=== PATIENT | female | born 1965 | race Caucasian/White ===

== ENCOUNTER 2024-03-09 11:06 | Emergency (ER) | payer BC ==
[2024-03-09 11:15] VITALS: BP 124/83; PULSE 82; RESP 16; TEMP 98.1; BMI 32.4
[2024-03-09] MEDS ORDERED: ALBUTEROL SO4 2.5/IPRATROPIUM 0.5 INH SOL 3 ML VIAL.NEB. NEB ONE (12:01)
[2024-03-09 12:04] LABS: HEMATOCRIT 42.5 % (32.4-45.2); HEMOGLOBIN 14.8 G/dL (10.7-15.3); MCH 29.6 pg (25.7-33.7); MCHC 34.8 g/dl (32.0-36.0); MEAN CELL VOLUME 84.9 fl (80-96); MEAN PLT VOLUME 8.9 fl (7.5-11.1); PLATELET COUNT 230.2 10^3/uL (134-434); RDW 13.3 % (11.6-15.6); WHITE BLOOD COUNT 7.8 10^3/uL (4.0-10.8)
[2024-03-09] MEDS: ALBUTEROL SO4 2.5/IPRATROPIUM 0.5 INH SOL 3 ML VIAL.NEB. NEB SCH (12:09)
[2024-03-09 12:11] LABS: INR 1.01 (0.83-1.09); PROTHROMBIN TIME (PATIENT) 11.5 SEC (9.7-13.0)
[2024-03-09 12:14] LABS: ACTIVATED PTT 34.9 SECONDS (25.2-36.5)
[2024-03-09 12:23] LABS: ALBUMIN 4.2 g/dl (3.4-5.0); BILIRUBIN,TOTAL 0.3 mg/dl (0.2-1); CALCIUM 9.6 mg/dl (8.5-10.1); CREATININE 0.7 mg/dl (0.6-1.3); MAGNESIUM 1.8 mg/dL (1.8-2.4); POTASSIUM 3.8 mmol/L (3.5-5.1); TOT PROT 7.3 g/dl (6.4-8.2)
[2024-03-09 13:16] LABS: N-TERMINAL BNP 82.5 pg/ml (5-125)
== END 2024-03-09 13:46 | disposition home or self-care (01) ==
LOC: FER 11:06
DX: U07.1 COVID-19 (principal); R06.02 Shortness of breath; R53.83 Other fatigue
CPT/HCPCS: 0241U-QW; 36415; 71046-TC-FY; 80053; 83735; 83880; 84484; 85027; 85610; 85730; 93005; 99285-25